=== PATIENT | male | born 1960 | race Caucasian/White ===

== ENCOUNTER 2020-07-02 14:26 | Emergency (ER) | payer MEDICAID ==
[~2020-07-02] VITALS: Ht 175.3 cm; Wt 70.0 kg
[2020-07-02 14:28] VITALS: BP 164/99
[2020-07-02] MEDS ORDERED: KETOROLAC 30 MG/1 ML IM ONE (15:00)
[2020-07-02] MEDS ORDERED: OXYcodone/APAP 10/325MG TABLET PO ONE (15:00)
[2020-07-02] MEDS ORDERED: OXYcodone/APAP 10/325MG TABLET ONE (15:09)
[2020-07-02] MEDS ORDERED: KETOROLAC 30 MG/1 ML ONE (15:09)
--- NOTE | 2020-07-02 15:24 | NUR ---
PT MEDICATED PER EMAR FOR PAIN. PT TOLERATED WELL.
--- NOTE | 2020-07-02 15:43 | NUR ---
PT AMB TO BR WITH STEADY GAIT. PT STATED "I FEEL MUCH BETTER"
== END 2020-07-02 16:37 | disposition home or self-care (01) ==
LOC: ED 15:56
DX: G89.29 Other chronic pain (principal); M54.5 Low back pain; M19.90 Unspecified osteoarthritis, unspecified site
CPT/HCPCS: 96372; 99283; J1885